=== PATIENT | female | born 2000 | race Two or more races ===

== ENCOUNTER 2020-04-18 10:33 | Emergency (ER) | payer MEDICAID, OTHER ==
[~2020-04-18] VITALS: Ht 152.4 cm; Wt 54.4 kg
[2020-04-18] MEDS ORDERED: KETOROLAC TROMETH 60MG/2ML VIAL IM ONE (12:00)
[2020-04-18 18:00] VITALS: BP 108/52
== END 2020-04-18 18:05 | disposition home or self-care (01) ==
LOC: ER 10:33
DX: N83.202 Unspecified ovarian cyst, left side (principal)
CPT/HCPCS: 36415; 76775; 76817; 76856; 81002; 81025; 84702; 96372; 99285; J1885